=== PATIENT | male | born 1995 | race Caucasian/White ===

== ENCOUNTER 2019-02-02 11:49 | Emergency (ER) | payer OTHER ==
[~2019-02-02] VITALS: Ht 190.5 cm; Wt 90.4 kg
[2019-02-02] MEDS ORDERED: ACET325T14 PO (12:25)
--- NOTE | 2019-02-02 12:25 | NUR ---
PT ACCOMPANIED BY FRIEND. HAS TONSILECTOMY 12 DAYS AGO. "BEEN PAINFUL FOR THE PAST 12 DAYS". DID A COURSE OF AMOXICILLIN FOR 9 DAYS. THIS MORNING WOKE UP AND THROAT WAS BLEEDING. HAS BEEN SPITTING UP BLOOD. BACK OF THROAT IS RED WITH WHITE PATCHES AND THERE IS BLOOD EVIDENT. ICE PACK PROVIDED. CALL LIGHT WITHIN REACH. AWAITING DOCTORS ARRIVAL
[2019-02-02 14:02] VITALS: BP 118/78
[2019-02-08] MEDS ORDERED: ACET325T14 PO (10:19)
== END 2019-02-02 14:07 | disposition home or self-care (01) ==
LOC: ED 13:03
DX: J95.830 Postprocedural hemorrhage of a respiratory system organ or structure following a respiratory system procedure (principal); Z90.89 Acquired absence of other organs
CPT/HCPCS: 99283